=== PATIENT | female | born 1960 | race Caucasian/White ===

== ENCOUNTER 2017-05-07 07:04 | Emergency (ER) | payer BC ==
--- NOTE | 2017-05-07 07:10 | ED ---
Upper Extremity Pain - HPI Summary HPI Summary: 57 year old female with complains of right hand/forearm pain. - History of Current Complaint Stated Complaint: RIGHT ARM PAIN Time Seen by Provider: 05/07/17 07:09 - Allergies/Home Medications Allergies/Adverse Reactions: Allergies Allergy/AdvReac Type Severity Reaction Status Date / Time No Known Allergies Allergy Verified 05/07/17 07:17 PMH/Surg Hx/FS Hx/Imm Hx Previously Healthy: Yes Infectious Disease History: Denies: Hx Clostridium Difficile, Hx Hepatitis, Hx Human Immunodeficiency Virus (HIV), Hx of Known/Suspected MRSA, Hx Shingles, Hx Tuberculosis, Hx Known/ Suspected VRE, Hx Known/Suspected VRSA, History Other Infectious Disease - Family History Known Family History: Negative: Blood Disorder - Social History Alcohol Use: Occasionally Substance Use Type: Reports: None Smoking Status (MU): Never Smoked Tobacco Review of Systems Constitutional: Negative Eyes: Negative ENT: Negative Cardiovascular: Negative Respiratory: Negative Gastrointestinal: Negative Positive: Myalgia, Other Skin: Negative Neurological: Negative All Other Systems Reviewed And Are Negative: Yes Physical Exam Triage Information Reviewed: Yes Vital Signs Reviewed: Yes Eyes: Positive: Normal ENT: Positive: Normal ENT inspection Neck: Positive: Supple Respiratory/Lung Sounds: Positive: Clear to Auscultation Course/Dx - Diagnoses Provider Diagnoses: Intersection syndrome, Intersection syndrome of wrist Discharge - Discharge Plan Condition: Stable Disposition: HOME Prescriptions: Meloxicam [Mobic] 7.5 mg PO BID #30 tab Patient Education Materials: Arm Pain (ED) Referrals: Hailey Rowe MD [Medical Doctor] - Ab Mitchell MD [Medical Doctor] -
[2017-05-07 07:24] VITALS: BP 115/66
--- NOTE | 2017-05-07 07:45 | RAD ---
INDICATION: Right hand injury. TECHNIQUE: 4 views of the right hand were obtained. FINDINGS: The bones are in normal alignment. No fracture is seen. Joint spaces appear maintained. IMPRESSION: NO EVIDENCE FOR FRACTURE.
== END 2017-05-07 07:58 | disposition home or self-care (01) ==
LOC: UCCORT 07:04
DX: M65.831 Other synovitis and tenosynovitis, right forearm (principal)
CPT/HCPCS: 99213; G0463